=== PATIENT | male | born 1995 | race Caucasian/White ===

== ENCOUNTER 2016-03-16 21:48 | Emergency (ER) | payer OTHER ==
[2016-03-16] MEDS ORDERED: METOCLOPRAMIDE INJ 10MG/2ML VIAL (J2765) As Ordered ONE (22:26)
[2016-03-16 23:13] LABS: MEAN CORPUSCULAR HEMOGLOBIN 28.8 pg (27.0-33.0); MEAN CORPUSCULAR HGB CONC 34.7 g/dl (32.0-36.5); MEAN CORPUSCULAR VOLUME 83.1 fl (80.0-96.0); PLATELET COUNT, AUTOMATED 237 k/mm3 (150-450); RED CELL DISTRIBUTION WIDTH 13.4 % (11.5-14.5); WHITE BLOOD COUNT 9.5 K/mm3 (4.0-10.0)
[2016-03-16 23:20] LABS: ALBUMIN 4.5 GM/DL (3.2-5.2); ALBUMIN/GLOBULIN RATIO 1.15 (1.00-1.93); ALKALINE PHOSPHATASE 101 U/L (45-117); ALT/SGPT 24 U/L (12-78); AMYLASE 72 U/L (25-115); ANION GAP 9 MEQ/L (8-16); AST/SGOT 16 U/L (15-37); BILIRUBIN,DIRECT 0.1 MG/DL (0.0-0.2); BILIRUBIN,TOTAL 0.7 MG/DL (0.2-1.0); BLOOD UREA NITROGEN 18 MG/DL (7-18); CALCIUM LEVEL 9.4 MG/DL (8.5-10.1); CARBON DIOXIDE LEVEL 26 MEQ/L (21-32); CHLORIDE LEVEL 103 MEQ/L (98-107); CREATININE FOR GFR 1.38 MG/DL (0.70-1.30); GLUCOSE, FASTING 144 MG/DL (70-105); POTASSIUM SERUM 4.5 MEQ/L (3.5-5.1); SODIUM LEVEL 138 MEQ/L (136-145); TOTAL PROTEIN 8.4 GM/DL (6.4-8.2)
[2016-03-16 23:43] LABS: BANDS 2 % (< 11)
--- NOTE | 2016-03-17 00:50 | EDDOCDS ---
Physician Documentation [facility] Name: Beau Hoffman Age: 20 yrs Sex: Male : 1995 Arrival Date: 03/16/2016 Time: 21:48 Bed 17 Private [facility] Disposition: 03/16/16 23:39 Discharged to Home/Self Care. Impression: Noninfective gastroenteritis and colitis, unspecified, Orthostatic hypotension, Volume depletion. - Condition is Stable. - Prescriptions for Zofran 4 mg Oral Tablet - take 1 tablet by ORAL route 4 times per day As needed; 10 tablet. - Medication Reconciliation, Local Pharmacy Hours form. - [facility]; When: Call to arrange an appointment; Reason: Recheck today's complaints. - Problem is new. - Symptoms have improved. Historical: - Allergies: No known drug Allergies; - Home Meds: 1. none - PMHx: none; - PSHx: none; - Social history: Smoking status: Patient states was never smoker of tobacco. No barriers to communication noted, The patient speaks fluent Greenlandic, Speaks appropriately for age. - Family history: No immediate family members are acutely ill. - : The pt / caregiver states he / she is not on anticoagulants. Home medication list is obtained from the patient. - Exposure Risk Screening:: None identified. Vital Signs: 03/16 21:53 BP 133 / 61; Pulse 66; Resp 18; Temp 98.6(O); Pulse Ox 100% on R/A; Weight 65.77 kg / dd6 145 lbs (R); Height 66 in. (167.64 cm) (R); 22:20 BP 132 / 69 RA Supine (auto/reg); Pulse 91; Resp 18; nn1 22:20 BP 116 / 63 RA Sitting (auto/reg); Pulse 89; nn1 22:20 BP 111 / 58 RA Standing (auto/reg); Pulse 101; Resp 18; nn1 21:53 Body Mass Index 23.40 (65.77 kg, 167.64 cm) dd6 MDM: 22:07 Orthostatic VS ordered. cs11 22:22 IV Saline Lock ordered. cs11 22:22 NS 0.9% 2000 ml IV at bolus once ordered. cs11 22:22 Metoclopramide 10 mg IV at 40 mg/hr once over 15 mins ordered. cs11 22:23 CBC with Diff Ordered. EDMS 22:23 MED Profile Ordered. EDMS 22:23 Lipase Ordered. EDMS 22:23 Liver Profile Ordered. EDMS 22:23 Amylase Ordered. EDMS 22:53 Financial registration complete. gjb 23:15 DIFFERENTIAL NO CHARGE Ordered. EDMS 23:15 PLATELET ESTIMATE Ordered. EDMS 23:19 [facility] Payment Agreement was scanned into [employer] and attached to record. gjb 23:31 MED Profile Reviewed. cs11 23:31 Liver Profile Reviewed. cs11 23:31 CBC with Diff Reviewed. cs11 23:31 Lipase Reviewed. cs11 23:31 Amylase Reviewed. cs11 Administered Medications: 22:40 Drug: Metoclopramide 10 mg [metoclopramide 5 mg/mL injection solution] Route: IV; Rate: nn1 40 mg/hr; Infused Over: 15 mins; Site: left antecubital; 23:10 Follow up: IV Status: Completed infusion nn1 22:41 Drug: NS 0.9% 2000 ml [sodium chloride 0.9 % intravenous solution] Route: IV; Rate: nn1 bolus; Site: left antecubital; Signatures: Dispatcher [employer] EDMS Vish Ngo, DO cs11 Idris LozanoRN RN Dhara GarciaRN RN nn1 Ramona Contreras The chart was reviewed and I authenticate all verbal orders and agree with the evaluation and treatment provided.Attachments: 23:19 [facility] Payment Agreement kiesha MTDD
--- NOTE | 2016-03-17 00:50 | EDDOCDS ---
Nurse's Notes [facility] Name: Beau Hoffman Age: 20 yrs Sex: Male : 1995 Arrival Date: 03/16/2016 Time: 21:48 Bed 17 [facility] Diagnosis: Noninfective gastroenteritis and colitis, unspecified;Orthostatic hypotension;Volume depletion Presentation: 03/16 21:55 Presenting complaint: states: Patient has been vomiting, some blood noted. Loose b stools. Per slight disorientation. ? syncopal episode. Adult Sepsis Screening: Patient has new or worsening altered mentation (1 point). Patient's respiratory rate is less than 22. Systolic blood pressure is greater than 100. Patient has a qSOFA score of 0- Negative Sepsis Screen. Suicide/Homicide risk assessment- the patient denies having any suicidal and/or homicidal ideations and does not present with any other emotional, behavioral or mental health complaints. Status: Patient is not a patient service representative or dependent. Transition of care: patient was not received from another setting of care. 21:55 Acuity: LIBERTAD Level 3 [facility] [place] 21:55 Method Of Arrival: Walkin/Carried/Asstd [facility] [place] Triage Assessment: 21:56 General: Appears ill, Behavior is appropriate for age, cooperative. Pain: Denies pain. b Pt Declines HIV testing. Neurological: Level of Consciousness is awake, alert, confused, Speech is normal, Facial symmetry appears normal, Facial symmetry: tongue is midline. Cardiovascular: No deficits noted. Respiratory: Airway is patent Respiratory effort is even, unlabored, Respiratory pattern is regular, symmetrical. Derm: Skin is pale. Musculoskeletal: Range of motion intact in all extremities. Historical: - Allergies: No known drug Allergies; - Home Meds: 1. none - PMHx: none; - PSHx: none; - Social history: Smoking status: Patient states was never smoker of tobacco. No barriers to communication noted, The patient speaks fluent Khmer, Speaks appropriately for age. - Family history: No immediate family members are acutely ill. - : The pt / caregiver states he / she is not on anticoagulants. Home medication list is obtained from the patient. - Exposure Risk Screening:: None identified. Screenin/14 00:48 Screening information is obtained from the patient. Fall risk: No risks identified. nn1 Assistance ADL's: requires no assistance with activities of daily living. Abuse/DV Screen: The patient / caregiver reports he/she is: not in a situation that causes fear, pain or injury. Nutritional screening: No deficits noted. Advance Directives: Currently, there is no health care proxy. home support is adequate. Assessment: 03/16 22:21 General: Appears ill, Behavior is appropriate for age, cooperative. Pain: Location: nn1 abdomen Pain currently is 10 out of 10 on a pain scale. Quality of pain is described as sharp, throbbing, Pain began 1630 Noted to be moaning, resistant to movement. Neurological: Level of Consciousness is awake, alert, obeys commands. Respiratory: Airway is patent Respiratory effort is even, labored, shallow, Respiratory pattern is regular, Breath sounds are clear bilaterally. GI: Abdomen is non- distended Bowel sounds present X 4 quads. Abd is tender to palpation X 4 quads. Reports diarrhea, lower abdominal pain, upper abd pain, nausea, vomiting, intolerance of food, intolerance of fluids. Derm: Skin is clammy, Skin is pale. 22:41 General: Provider aware of orthostatic vital signs. . nn1 23:10 General: Appears ill, uncomfortable, Behavior is appropriate for age, cooperative. nn1 Neurological: Level of Consciousness is awake, alert. Derm: Skin is pale. 23:55 General: Second liter of fluids infusing per order. Patient reports feeling better at nn1 this time, reports nausea has improved. . Neurological: Level of Consciousness is awake, alert. Derm: Skin is pink, warm & dry. 03/17 00:27 General: Patient assisted to bedside commode, patient able to ambulate back into bed. nn1 Patient continues to have cough. . Neurological: Level of Consciousness is awake, alert. Respiratory: Airway is patent. Derm: Skin is pink, warm & dry. 00:48 General: Appears in no apparent distress, comfortable, Behavior is appropriate for age, nn1 cooperative. Pain: Denies pain. Neurological: Level of Consciousness is awake, alert. Respiratory: Airway is patent Respiratory effort is even, unlabored, Respiratory pattern is regular, symmetrical. Derm: Skin is pink, warm & dry. Vital Signs: 03/16 21:53 BP 133 / 61; Pulse 66; Resp 18; Temp 98.6(O); Pulse Ox 100% on R/A; Weight 65.77 kg dd6 (R); Height 66 in. (167.64 cm) (R); 22:20 BP 132 / 69 RA Supine (auto/reg); Pulse 91; Resp 18; nn1 22:20 BP 116 / 63 RA Sitting (auto/reg); Pulse 89; nn1 22:20 BP 111 / 58 RA Standing (auto/reg); Pulse 101; Resp 18; nn1 21:53 Body Mass Index 23.40 (65.77 kg, 167.64 cm) dd6 Vitals: 21:53 Log In Time: March 16, 2016 at 21:50. dd6 ED Course: 21:52 Patient visited by Shawn Aleman PCA. dd6 21:52 Patient moved to Waiting dd6 21:53 [facility] is Private Physician. dd6 21:54 Patient moved to Pre RCE dd6 21:56 Triage Initiated jmb 21:57 Adela Brennan,DAVID is Primary Nurse. jmb 21:57 Vish Ngo DO is Attending Physician. cs11 21:57 Patient visited by Vish Ngo DO. cs11 21:57 Patient moved to 17 jmb 22:41 Patient visited by Dhara Thomas,DAVID. nn1 22:41 Amylase Sent. nn1 22:41 Liver Profile Sent. nn1 22:41 Lipase Sent. nn1 22:41 MED Profile Sent. nn1 22:41 CBC with Diff Sent. nn1 22:41 Inserted saline lock: 18 gauge in left antecubital area and blood collected. The nn1 patient tolerated the procedure well. 22:49 Diet: given alexei roland tolerated well. jlm 22:50 Patient visited by Julienne Sanders, Wildlife Science Professor. jlm 23:15 Patient name changed from Beau\S\\S\Dalton\S\ to Beau\S\Jack\S\Dalton. EDMS 23:19 [facility] Payment Agreement was scanned into [employer] and attached to record. gjb 23:19 DIFFERENTIAL NO CHARGE Sent. nn1 23:38 [facility] is Referral Physician. cs11 03/17 00:49 The patient / caregiver is instructed regarding the plan of care and ED course. nn1 00:49 No procedures done that require assistance. nn1 Administered Medications: 03/16 22:40 Drug: Metoclopramide 10 mg [metoclopramide 5 mg/mL injection solution] Route: IV; Rate: nn1 40 mg/hr; Infused Over: 15 mins; Site: left antecubital; 23:10 Follow up: IV Status: Completed infusion nn1 22:41 Drug: NS 0.9% 2000 ml [sodium chloride 0.9 % intravenous solution] Route: IV; Rate: nn1 bolus; Site: left antecubital; Order Results: Lab Order: CBC with Diff; SPEC'M 03/16/16 22:39 Test: WHITE BLOOD COUNT; Value: 9.5; Range: 4.0-10.0; Units: K/mm3; Status: F Test: RED BLOOD COUNT; Value: 5.91; Range: 4.30-6.10; Units: M/mm3; Status: F Test: HEMOGLOBIN; Value: 17.1; Range: 14.0-18.0; Units: g/dl; Status: F Test: HEMATOCRIT; Value: 49.2; Range: 42.0-52.0; Units: %; Status: F Test: MEAN CORPUSCULAR VOLUME; Value: 83.1; Range: 80.0-96.0; Units: fl; Status: F Test: MEAN CORPUSCULAR HEMOGLOBIN; Value: 28.8; Range: 27.0-33.0; Units: pg; Status: F Test: MEAN CORPUSCULAR HGB CONC; Value: 34.7; Range: 32.0-36.5; Units: g/dl; Status: F Test: RED CELL DISTRIBUTION WIDTH; Value: 13.4; Range: 11.5-14.5; Units: %; Status: F Test: PLATELET COUNT, AUTOMATED; Value: 237; Range: 150-450; Units: k/mm3; Status: F Test: NEUTROPHILS; Value: 90; Range: 35-75; Abnormal: Above high normal; Units: %; Status: F Test: BANDS; Value: 2; Range: < 11; Units: %; Status: F Test: LYMPHOCYTES; Value: 4; Range: 16-52; Abnormal: Below low normal; Units: %; Status: F Test: MONOCYTES; Value: 4; Range: 0-8; Units: %; Status: F Test: RBC MORPHOLOGY; Value: NORMAL; Status: F Lab Order: MED Profile; [facility] 03/16/16 22:39 Test: GLUCOSE, FASTING; Value: 144; Range: 70-105; Abnormal: Above high normal; Units: MG/DL; Status: F Test: BLOOD UREA NITROGEN; Value: 18; Range: 7-18; Units: MG/DL; Status: F Test: CREATININE FOR GFR; Value: 1.38; Range: 0.70-1.30; Abnormal: Above high normal; Units: MG/DL; Status: F Test: SODIUM LEVEL; Value: 138; Range: 136-145; Units: MEQ/L; Status: F Test: POTASSIUM SERUM; Value: 4.5; Range: 3.5-5.1; Units: MEQ/L; Status: F Test: CHLORIDE LEVEL; Value: 103; Range: 98-107; Units: MEQ/L; Status: F Test: CARBON DIOXIDE LEVEL; Value: 26; Range: 21-32; Units: MEQ/L; Status: F Test: ANION GAP; Value: 9; Range: 8-16; Units: MEQ/L; Status: F Test: CALCIUM LEVEL; Value: 9.4; Range: 8.5-10.1; Units: MG/DL; Status: F Lab Order: Lipase; [facility] 03/16/16 22:39 Test: LIPASE; Value: 93; Range: 73-393; Units: U/L; Status: F Lab Order: Liver Profile; [facility] 03/16/16 22:39 Test: AST/SGOT; Value: 16; Range: 15-37; Units: U/L; Status: F Test: ALT/SGPT; Value: 24; Range: 12-78; Units: U/L; Status: F Test: ALKALINE PHOSPHATASE; Value: 101; Range: 45-117; Units: U/L; Status: F Test: BILIRUBIN,TOTAL; Value: 0.7; Range: 0.2-1.0; Units: MG/DL; Status: F Test: BILIRUBIN,DIRECT; Value: 0.1; Range: 0.0-0.2; Units: MG/DL; Status: F Test: TOTAL PROTEIN; Value: 8.4; Range: 6.4-8.2; Abnormal: Above high normal; Units: GM/DL; Status: F Test: ALBUMIN; Value: 4.5; Range: 3.2-5.2; Units: GM/DL; Status: F Test: ALBUMIN/GLOBULIN RATIO; Value: 1.15; Range: 1.00-1.93; Status: F Lab Order: Amylase; SPEC'M 03/16/16 22:39 Test: AMYLASE; Value: 72; Range: 25-115; Units: U/L; Status: F Lab Order: PLATELET ESTIMATE; SPEC'M 03/16/16 22:39 Test: PLATELET ESTIMATE; Value: NORMAL; Range: NORMAL; Status: F Outcome: 23:39 Discharge ordered by Provider. cs11 03/17 00:48 Discharge Assessment: Patient awake, alert and oriented x 3. No cognitive and/or nn1 functional deficits noted. Patient verbalized understanding of disposition instructions. patient administered narcotics - no. The following High Risk Discharge criteria are identified: None. Discharged to home ambulatory, with significant other. Condition: stable. No special radiology studies were completed. Property :Personal belongings accompany Pt. 00:49 Patient left the ED. nn1 Signatures: Dispatcher Med[employer] EDMS Shawn Aleman, WINDOWS SOFTWARE DEVELOPER WINDOWS SOFTWARE DEVELOPER dd6 Vish Ngo, DO DO cs11 Idris Lozano,RN RN Julienne Brown, Wildlife Science Professor Unit Dhara Armenta RN RN nn1 Ramona Contrears MTDD
--- NOTE | 2016-03-19 01:50 | EDDOCDS ---
Physician Documentation [facility] Name: Beau Hoffman Age: 20 yrs Sex: Male : 1995 Arrival Date: 03/16/2016 Time: 21:48 Bed 17 Private MD: [facility] Disposition: 03/16/16 23:39 Discharged to Home/Self Care. Impression: Noninfective gastroenteritis and colitis, unspecified, Orthostatic hypotension, Volume depletion. - Condition is Stable. - Prescriptions for Zofran 4 mg Oral Tablet - take 1 tablet by ORAL route 4 times per day As needed; 10 tablet. - Medication Reconciliation, Local Pharmacy Hours form. - Follow up: [facility]; When: Call to arrange an appointment; Reason: Recheck today's complaints. - Problem is new. - Symptoms have improved. Historical: - Allergies: No known drug Allergies; - Home Meds: 1. none - PMHx: none; - PSHx: none; - Social history: Smoking status: Patient states was never smoker of tobacco. No barriers to communication noted, The patient speaks fluent Congolese, Speaks appropriately for age. - Family history: No immediate family members are acutely ill. - : The pt / caregiver states he / she is not on anticoagulants. Home medication list is obtained from the patient. - Exposure Risk Screening:: None identified. Vital Signs: 03/16 21:53 BP 133 / 61; Pulse 66; Resp 18; Temp 98.6(O); Pulse Ox 100% on R/A; Weight 65.77 kg / dd6 145 lbs (R); Height 66 in. (167.64 cm) (R); 22:20 BP 132 / 69 RA Supine (auto/reg); Pulse 91; Resp 18; nn1 22:20 BP 116 / 63 RA Sitting (auto/reg); Pulse 89; nn1 22:20 BP 111 / 58 RA Standing (auto/reg); Pulse 101; Resp 18; nn1 03/17 00:50 BP 115 / 53; Pulse 103; Resp 18; Temp 100.8(O); Pulse Ox 98% on R/A; nn1 03/16 21:53 Body Mass Index 23.40 (65.77 kg, 167.64 cm) dd6 MDM: 03/16 22:07 Orthostatic VS ordered. cs11 22:22 IV Saline Lock ordered. cs11 22:22 NS 0.9% 2000 ml IV at bolus once ordered. cs11 22:22 Metoclopramide 10 mg IV at 40 mg/hr once over 15 mins ordered. cs11 22:23 CBC with Diff Ordered. EDMS 22:23 MED Profile Ordered. EDMS 22:23 Lipase Ordered. EDMS 22:23 Liver Profile Ordered. EDMS 22:23 Amylase Ordered. EDMS 22:53 Financial registration complete. gjb 23:15 DIFFERENTIAL NO CHARGE Ordered. EDMS 23:15 PLATELET ESTIMATE Ordered. EDMS 23:19 [facility] Payment Agreement was scanned into [employer] and attached to record. gjb 23:31 MED Profile Reviewed. cs11 23:31 Liver Profile Reviewed. cs11 23:31 CBC with Diff Reviewed. cs11 23:31 Lipase Reviewed. cs11 23:31 Amylase Reviewed. [facility] 03/17 08:01 T-Sheet-- Draft Copy was scanned into [employer] and attached to record. seh Administered Medications: 03/16 22:40 Drug: Metoclopramide 10 mg [metoclopramide 5 mg/mL injection solution] Route: IV; Rate: nn1 40 mg/hr; Infused Over: 15 mins; Site: left antecubital; 23:10 Follow up: IV Status: Completed infusion nn1 22:41 Drug: NS 0.9% 2000 ml [sodium chloride 0.9 % intravenous solution] Route: IV; Rate: nn1 bolus; Site: left antecubital; 03/17 00:50 Follow up: IV Status: Completed infusion; IV Intake: 2000ml nn1 Signatures: Dispatcher [employer] EDPR Vish Ngo DO DO cs11 Idris LozanoRN RN Dhara Garcia RN RN henok1 Ramona Contreras Sarah [facility] The chart was reviewed and I authenticate all verbal orders and agree with the evaluation and treatment provided.Attachments: 03/16 23:19 [facility] Payment Agreement [facility] 03/17 08:01 T-Sheet-- Draft Copy [facility] Chart Complete MTDD
--- NOTE | 2016-03-19 01:50 | EDDOCDS ---
Physician Documentation [facility] Name: Beau Hoffman Age: 20 yrs Sex: Male : 1995 Arrival Date: 03/16/2016 Time: 21:48 Bed 17 Private MD: [facility] Disposition: 03/16/16 23:39 Discharged to Home/Self Care. Impression: Noninfective gastroenteritis and colitis, unspecified, Orthostatic hypotension, Volume depletion. - Condition is Stable. - Prescriptions for Zofran 4 mg Oral Tablet - take 1 tablet by ORAL route 4 times per day As needed; 10 tablet. - Medication Reconciliation, Local Pharmacy Hours form. - Follow up: [facility]; When: Call to arrange an appointment; Reason: Recheck today's complaints. - Problem is new. - Symptoms have improved. Historical: - Allergies: No known drug Allergies; - Home Meds: 1. none - PMHx: none; - PSHx: none; - Social history: Smoking status: Patient states was never smoker of tobacco. No barriers to communication noted, The patient speaks fluent Norwegian, Speaks appropriately for age. - Family history: No immediate family members are acutely ill. - : The pt / caregiver states he / she is not on anticoagulants. Home medication list is obtained from the patient. - Exposure Risk Screening:: None identified. Vital Signs: 03/16 21:53 BP 133 / 61; Pulse 66; Resp 18; Temp 98.6(O); Pulse Ox 100% on R/A; Weight 65.77 kg / dd6 145 lbs (R); Height 66 in. (167.64 cm) (R); 22:20 BP 132 / 69 RA Supine (auto/reg); Pulse 91; Resp 18; nn1 22:20 BP 116 / 63 RA Sitting (auto/reg); Pulse 89; nn1 22:20 BP 111 / 58 RA Standing (auto/reg); Pulse 101; Resp 18; nn1 03/17 00:50 BP 115 / 53; Pulse 103; Resp 18; Temp 100.8(O); Pulse Ox 98% on R/A; nn1 03/16 21:53 Body Mass Index 23.40 (65.77 kg, 167.64 cm) dd6 MDM: 03/16 22:07 Orthostatic VS ordered. cs11 22:22 IV Saline Lock ordered. cs11 22:22 NS 0.9% 2000 ml IV at bolus once ordered. cs11 22:22 Metoclopramide 10 mg IV at 40 mg/hr once over 15 mins ordered. cs11 22:23 CBC with Diff Ordered. EDMS 22:23 MED Profile Ordered. EDMS 22:23 Lipase Ordered. EDMS 22:23 Liver Profile Ordered. EDMS 22:23 Amylase Ordered. EDMS 22:53 Financial registration complete. gjb 23:15 DIFFERENTIAL NO CHARGE Ordered. EDMS 23:15 PLATELET ESTIMATE Ordered. EDMS 23:19 [facility] Payment Agreement was scanned into [employer] and attached to record. gjb 23:31 MED Profile Reviewed. cs11 23:31 Liver Profile Reviewed. cs11 23:31 CBC with Diff Reviewed. cs11 23:31 Lipase Reviewed. cs11 23:31 Amylase Reviewed. [facility] 03/17 08:01 T-Sheet-- Draft Copy was scanned into [employer] and attached to record. seh Administered Medications: 03/16 22:40 Drug: Metoclopramide 10 mg [metoclopramide 5 mg/mL injection solution] Route: IV; Rate: nn1 40 mg/hr; Infused Over: 15 mins; Site: left antecubital; 23:10 Follow up: IV Status: Completed infusion nn1 22:41 Drug: NS 0.9% 2000 ml [sodium chloride 0.9 % intravenous solution] Route: IV; Rate: nn1 bolus; Site: left antecubital; 03/17 00:50 Follow up: IV Status: Completed infusion; IV Intake: 2000ml nn1 Signatures: Dispatcher [employer] EDME Vish Nog DO DO cs11 Idris LozanoRN RN Dhara Garcia RN RN henok1 Ramona Contreras Sarah [facility] The chart was reviewed and I authenticate all verbal orders and agree with the evaluation and treatment provided.Attachments: 03/16 23:19 [facility] Payment Agreement [facility] 03/17 08:01 T-Sheet-- Draft Copy [facility] Chart Complete MTDD
--- NOTE | 2016-03-19 01:50 | EDDOCDS ---
Nurse's Notes [facility] Name: Beau Hoffman Age: 20 yrs Sex: Male : 1995 Arrival Date: 03/16/2016 Time: 21:48 Bed 17 [facility] Diagnosis: Noninfective gastroenteritis and colitis, unspecified;Orthostatic hypotension;Volume depletion Presentation: 03/16 21:55 Presenting complaint: states: Patient has been vomiting, some blood noted. Loose b stools. Per slight disorientation. ? syncopal episode. Adult Sepsis Screening: Patient has new or worsening altered mentation (1 point). Patient's respiratory rate is less than 22. Systolic blood pressure is greater than 100. Patient has a qSOFA score of 0- Negative Sepsis Screen. Suicide/Homicide risk assessment- the patient denies having any suicidal and/or homicidal ideations and does not present with any other emotional, behavioral or mental health complaints. Status: Patient is not a equipment service associate or dependent. Transition of care: patient was not received from another setting of care. 21:55 Acuity: LIBERTAD Level 3 [facility] 21:55 Method Of Arrival: Walkin/Carried/Asstd [facility] Triage Assessment: 21:56 General: Appears ill, Behavior is appropriate for age, cooperative. Pain: Denies pain. b Pt Declines HIV testing. Neurological: Level of Consciousness is awake, alert, confused, Speech is normal, Facial symmetry appears normal, Facial symmetry: tongue is midline. Cardiovascular: No deficits noted. Respiratory: Airway is patent Respiratory effort is even, unlabored, Respiratory pattern is regular, symmetrical. Derm: Skin is pale. Musculoskeletal: Range of motion intact in all extremities. Historical: - Allergies: No known drug Allergies; - Home Meds: 1. none - PMHx: none; - PSHx: none; - Social history: Smoking status: Patient states was never smoker of tobacco. No barriers to communication noted, The patient speaks fluent Y[place], Speaks appropriately for age. - Family history: No immediate family members are acutely ill. - : The pt / caregiver states he / she is not on anticoagulants. Home medication list is obtained from the patient. - Exposure Risk Screening:: None identified. Screenin/14 00:48 Screening information is obtained from the patient. Fall risk: No risks identified. nn1 Assistance ADL's: requires no assistance with activities of daily living. Abuse/DV Screen: The patient / caregiver reports he/she is: not in a situation that causes fear, pain or injury. Nutritional screening: No deficits noted. Advance Directives: Currently, there is no health care proxy. home support is adequate. Assessment: 03/16 22:21 General: Appears ill, Behavior is appropriate for age, cooperative. Pain: Location: nn1 abdomen Pain currently is 10 out of 10 on a pain scale. Quality of pain is described as sharp, throbbing, Pain began 1630 Noted to be moaning, resistant to movement. Neurological: Level of Consciousness is awake, alert, obeys commands. Respiratory: Airway is patent Respiratory effort is even, labored, shallow, Respiratory pattern is regular, Breath sounds are clear bilaterally. GI: Abdomen is non- distended Bowel sounds present X 4 quads. Abd is tender to palpation X 4 quads. Reports diarrhea, lower abdominal pain, upper abd pain, nausea, vomiting, intolerance of food, intolerance of fluids. Derm: Skin is clammy, Skin is pale. 22:41 General: Provider aware of orthostatic vital signs. . nn1 23:10 General: Appears ill, uncomfortable, Behavior is appropriate for age, cooperative. nn1 Neurological: Level of Consciousness is awake, alert. Derm: Skin is pale. 23:55 General: Second liter of fluids infusing per order. Patient reports feeling better at nn1 this time, reports nausea has improved. . Neurological: Level of Consciousness is awake, alert. Derm: Skin is pink, warm & dry. 03/17 00:27 General: Patient assisted to bedside commode, patient able to ambulate back into bed. nn1 Patient continues to have cough. . Neurological: Level of Consciousness is awake, alert. Respiratory: Airway is patent. Derm: Skin is pink, warm & dry. 00:48 General: Appears in no apparent distress, comfortable, Behavior is appropriate for age, nn1 cooperative. Pain: Denies pain. Neurological: Level of Consciousness is awake, alert. Respiratory: Airway is patent Respiratory effort is even, unlabored, Respiratory pattern is regular, symmetrical. Derm: Skin is pink, warm & dry. Vital Signs: 03/16 21:53 BP 133 / 61; Pulse 66; Resp 18; Temp 98.6(O); Pulse Ox 100% on R/A; Weight 65.77 kg dd6 (R); Height 66 in. (167.64 cm) (R); 22:20 BP 132 / 69 RA Supine (auto/reg); Pulse 91; Resp 18; nn1 22:20 BP 116 / 63 RA Sitting (auto/reg); Pulse 89; nn1 22:20 BP 111 / 58 RA Standing (auto/reg); Pulse 101; Resp 18; nn1 03/17 00:50 BP 115 / 53; Pulse 103; Resp 18; Temp 100.8(O); Pulse Ox 98% on R/A; nn1 03/16 21:53 Body Mass Index 23.40 (65.77 kg, 167.64 cm) dd6 Vitals: 03/16 21:53 Log In Time: March 16, 2016 at 21:50. dd6 ED Course: 21:52 Patient visited by Shawn Aleman PCA. dd6 21:52 Patient moved to Waiting dd6 21:53 [facility] is Private Physician. dd6 21:54 Patient moved to Pre RCE dd6 21:56 Triage Initiated jmb 21:57 Adela Brennan,DAVID is Primary Nurse. jmb 21:57 Vish Ngo DO is Attending Physician. cs11 21:57 Patient visited by Vish Ngo DO. cs11 21:57 Patient moved to 17 jmb 22:41 Patient visited by Dhara Thomas,DAVID. nn1 22:41 Amylase Sent. nn1 22:41 Liver Profile Sent. nn1 22:41 Lipase Sent. nn1 22:41 MED Profile Sent. nn1 22:41 CBC with Diff Sent. nn1 22:41 Inserted saline lock: 18 gauge in left antecubital area and blood collected. The nn1 patient tolerated the procedure well. 22:49 Diet: given alexei roland tolerated well. jlm 22:50 Patient visited by Julienne Sanders Unit Clerk. jlm 23:15 Patient name changed from Beau\S\\S\Dalton\S\ to Beau\S\Jack\S\Dalton. EDMS 23:19 [facility] [place] was scanned into [employer] and attached to record. gjb 23:19 DIFFERENTIAL NO CHARGE Sent. nn1 23:38 [facility] is Referral Physician. cs11 03/17 00:49 The patient / caregiver is instructed regarding the plan of care and ED course. nn1 00:49 No procedures done that require assistance. nn1 08:01 T-Sheet-- Draft Copy was scanned into [employer] and attached to record. [facility] Administered Medications: 03/16 22:40 Drug: Metoclopramide 10 mg [metoclopramide 5 mg/mL injection solution] Route: IV; Rate: nn1 40 mg/hr; Infused Over: 15 mins; Site: left antecubital; 23:10 Follow up: IV Status: Completed infusion nn1 22:41 Drug: NS 0.9% 2000 ml [sodium chloride 0.9 % intravenous solution] Route: IV; Rate: nn1 bolus; Site: left antecubital; 03/17 00:50 Follow up: IV Status: Completed infusion; IV Intake: 2000ml nn1 Intake: 00:50 IV: 2000.00ml; Total: 2000.00ml. nn1 Order Results: Lab Order: CBC with Diff; SPEC'M 03/16/16 22:39 Test: WHITE BLOOD COUNT; Value: 9.5; Range: 4.0-10.0; Units: K/mm3; Status: F Test: RED BLOOD COUNT; Value: 5.91; Range: 4.30-6.10; Units: M/mm3; Status: F Test: HEMOGLOBIN; Value: 17.1; Range: 14.0-18.0; Units: g/dl; Status: F Test: HEMATOCRIT; Value: 49.2; Range: 42.0-52.0; Units: %; Status: F Test: MEAN CORPUSCULAR VOLUME; Value: 83.1; Range: 80.0-96.0; Units: fl; Status: F Test: MEAN CORPUSCULAR HEMOGLOBIN; Value: 28.8; Range: 27.0-33.0; Units: pg; Status: F Test: MEAN CORPUSCULAR HGB CONC; Value: 34.7; Range: 32.0-36.5; Units: g/dl; Status: F Test: RED CELL DISTRIBUTION WIDTH; Value: 13.4; Range: 11.5-14.5; Units: %; Status: F Test: PLATELET COUNT, AUTOMATED; Value: 237; Range: 150-450; Units: k/mm3; Status: F Test: NEUTROPHILS; Value: 90; Range: 35-75; Abnormal: Above high normal; Units: %; Status: F Test: BANDS; Value: 2; Range: < 11; Units: %; Status: F Test: LYMPHOCYTES; Value: 4; Range: 16-52; Abnormal: Below low normal; Units: %; Status: F Test: MONOCYTES; Value: 4; Range: 0-8; Units: %; Status: F Test: RBC MORPHOLOGY; Value: NORMAL; Status: F Lab Order: MED Profile; [facility] 03/16/16 22:39 Test: GLUCOSE, FASTING; Value: 144; Range: 70-105; Abnormal: Above high normal; Units: MG/DL; Status: F Test: BLOOD UREA NITROGEN; Value: 18; Range: 7-18; Units: MG/DL; Status: F Test: CREATININE FOR GFR; Value: 1.38; Range: 0.70-1.30; Abnormal: Above high normal; Units: MG/DL; Status: F Test: SODIUM LEVEL; Value: 138; Range: 136-145; Units: MEQ/L; Status: F Test: POTASSIUM SERUM; Value: 4.5; Range: 3.5-5.1; Units: MEQ/L; Status: F Test: CHLORIDE LEVEL; Value: 103; Range: 98-107; Units: MEQ/L; Status: F Test: CARBON DIOXIDE LEVEL; Value: 26; Range: 21-32; Units: MEQ/L; Status: F Test: ANION GAP; Value: 9; Range: 8-16; Units: MEQ/L; Status: F Test: CALCIUM LEVEL; Value: 9.4; Range: 8.5-10.1; Units: MG/DL; Status: F Lab Order: Lipase; [facility] 03/16/16 22:39 Test: LIPASE; Value: 93; Range: 73-393; Units: U/L; Status: F Lab Order: Liver Profile; [facility] 03/16/16 22:39 Test: AST/SGOT; Value: 16; Range: 15-37; Units: U/L; Status: F Test: ALT/SGPT; Value: 24; Range: 12-78; Units: U/L; Status: F Test: ALKALINE PHOSPHATASE; Value: 101; Range: 45-117; Units: U/L; Status: F Test: BILIRUBIN,TOTAL; Value: 0.7; Range: 0.2-1.0; Units: MG/DL; Status: F Test: BILIRUBIN,DIRECT; Value: 0.1; Range: 0.0-0.2; Units: MG/DL; Status: F Test: TOTAL PROTEIN; Value: 8.4; Range: 6.4-8.2; Abnormal: Above high normal; Units: GM/DL; Status: F Test: ALBUMIN; Value: 4.5; Range: 3.2-5.2; Units: GM/DL; Status: F Test: ALBUMIN/GLOBULIN RATIO; Value: 1.15; Range: 1.00-1.93; Status: F Lab Order: Amylase; SPEC'M 03/16/16 22:39 Test: AMYLASE; Value: 72; Range: 25-115; Units: U/L; Status: F Lab Order: PLATELET ESTIMATE; SPEC'M 03/16/16 22:39 Test: PLATELET ESTIMATE; Value: NORMAL; Range: NORMAL; Status: F Outcome: 03/16 23:39 Discharge ordered by Provider. cs11 03/17 00:48 Discharge Assessment: Patient awake, alert and oriented x 3. No cognitive and/or nn1 functional deficits noted. Patient verbalized understanding of disposition instructions. patient administered narcotics - no. The following High Risk Discharge criteria are identified: None. Discharged to home ambulatory, with significant other. Condition: stable. No special radiology studies were completed. Property :Personal belongings accompany Pt. 00:49 Patient left the ED. nn1 Signatures: Dispatcher [employer] EDMS Shawn Aleman, SHERWIN TABLEAU LEAD dd6 Vish Ngo DO DO cs11 Idris Lozano,RN Julienne Rodriguez, Esthetician Unit Dhara Armenta RN RN [email or web address] Ramona Contreras Sarah seh Chart Complete MTDD
== END 2016-03-17 00:49 | disposition home or self-care (01) ==
LOC: M ED 21:48
DX: K52.9 Noninfective gastroenteritis and colitis, unspecified (principal)
CPT/HCPCS: 36415; 80048; 80076; 82150; 83690; 85025; 96361; 96365; 99284; J2765

== ENCOUNTER 2017-02-16 21:51 | Emergency (ER) | payer OTHER ==
[~2017-02-16] VITALS: Ht 167.6 cm; Wt 67.3 kg
[2017-02-16] MEDS ORDERED: GI COCKTAIL 50ML BTL(HYOSCYAMINE/MAALOX/LIDOCAINE VISCOUS)(1:3:1) PO ONE (22:30)
[2017-02-16] MEDS ORDERED: ONDANSETRON 4MG/2ML VIAL (J2405) IV ONE (22:30)
[2017-02-16] MEDS ORDERED: PANTOPRAZOLE 40MG INJ (PROTONIX) (C9113) IV ONE (22:30)
[2017-02-16] MEDS ORDERED: NS 500 ML IV ONE (22:30)
[2017-02-16 22:48] LABS: BASO % 0.4 % (0.0-1.0); EOS # 0.2 10^3/uL (0.0-0.50); EOS % 3.1 % (0.0-3.0); IMMATURE GRANULOCYTE % 0.4 % (0-0); LYMPH # 2.4 10^3/uL (1.5-6.5); LYMPH % 34.1 % (24.0-44.0); MEAN CORPUSCULAR HEMOGLOBIN 29.2 pg (27.0-33.0); MEAN CORPUSCULAR HGB CONC 33.9 g/dl (32.0-36.5); MEAN CORPUSCULAR VOLUME 86.2 fl (80.0-96.0); MONO # 0.6 10^3/uL (0.0-0.8); MONO % 8.1 % (0.0-5.0); NEUTROPHILS # 3.8 10^3/uL (1.8-7.7); NEUTROPHILS % 53.9 % (36.0-66.0); PLATELET COUNT, AUTOMATED 273 10^3/uL (150-450); RED CELL DISTRIBUTION WIDTH 12.3 % (11.5-14.5); WHITE BLOOD COUNT 7.1 10^3/uL (4.0-10.0)
[2017-02-16] MEDS ORDERED: GASTROGRAFIN SOLUTION 30ML PO ONE (22:50)
[2017-02-16 22:56] LABS: INR 0.98
[2017-02-16 23:08] LABS: ALBUMIN 3.6 GM/DL (3.2-5.2); ALBUMIN/GLOBULIN RATIO 1.13 (1.00-1.93); ALKALINE PHOSPHATASE 89 U/L (45-117); ALT/SGPT 24 U/L (12-78); AMYLASE 69 U/L (25-115); ANION GAP 6 MEQ/L (8-16); AST/SGOT 16 U/L (7-37); BILIRUBIN,DIRECT < 0.1 MG/DL (0.0-0.2); BILIRUBIN,TOTAL 0.3 MG/DL (0.2-1.0); BLOOD UREA NITROGEN 16 MG/DL (7-18); CALCIUM LEVEL 8.6 MG/DL (8.5-10.1); CARBON DIOXIDE LEVEL 29 MEQ/L (21-32); CHLORIDE LEVEL 106 MEQ/L (98-107); CREATININE FOR GFR 1.06 MG/DL (0.70-1.30); GLOMERULAR FILTRATION RATE > 60.0 (>60); GLUCOSE, FASTING 114 MG/DL (70-105); POTASSIUM SERUM 3.9 MEQ/L (3.5-5.1); SODIUM LEVEL 141 MEQ/L (136-145); TOTAL PROTEIN 6.8 GM/DL (6.4-8.2)
[2017-02-16] MEDS ORDERED: GASTROGRAFIN SOLUTION 30ML (Q9963) PO ONE (23:20)
[2017-02-17] MEDS ORDERED: ISOVUE-370 76% 100ML VIAL (Q9967) As Ordered ONE (00:13)
[2017-02-17 00:48] LABS: CONTROL LINE MONO INT CTR LINE PRESENT
--- NOTE | 2017-02-17 02:00 | REPUSA ---
CLINICAL HISTORY: Abdominal pain. TECHNIQUE: Multiple axial, sagittal and coronal CT images were obtained through the abdomen and pelvi s after administration of oral and intravenous contrast material. COMMENTS: Contrast filled distended stomach. Moderate amount of fecal residue in the large bowels. Fluid-filled small bowels. The liver is of uniform attenuation without mass or defect. There is no intra or extrahepatic biliary ductal dilatation. The spleen is normal. The gallbladder is within normal limits. The pancreas is of normal contour and attenuation characteristics. There is no evidence of adrenal mass. Both kidneys demonstrate prompt and equal nephrograms. The kidneys are normal in size, shape and conf iguration. There is no evidence of renal or ureteral mass. No renal or ureteral calculi are identifie d. There is no hydroureter or hydronephrosis. No evidence for appendicitis. There is no bowel wall thickening. No evidence for small or large eli l obstruction. There is no evidence of abdominal ascites or lymphadenopathy. There is no evidence of intrinsic or extrinsic bladder mass. There is no pelvic ascites or lymphadeno nida. Images of the lung bases show no evidence of pleural or parenchymal mass. There are no pleural effusi ons. The bony structures are free of lytic or blastic lesions. IMPRESSION: Gastroparesis. Constipation. Mild ileus. Thank you for your kind referral of this patient.
[2017-02-17] MEDS ORDERED: REGL5TAB2 PO (02:12)
[2017-02-17 02:27] VITALS: BP 124/61
[2017-02-18 13:45] LABS: CONTROL LINE HPYORI INT CTR LINE PRESENT
== END 2017-02-17 02:47 | disposition home or self-care (01) ==
LOC: M ED 21:51
DX: K31.84 Gastroparesis (principal); K59.00 Constipation, unspecified; K56.7 Ileus, unspecified; Z79.899 Other long term (current) drug therapy
CPT/HCPCS: 74177; 80048; 80076; 81001; 82150; 83605; 83690; 85025; 85610; 86308; 86677; 87040; 87491; 87591; 96361; 96374; 96375; 99284; C9113; J2405; Q9963; Q9967

== ENCOUNTER 2017-12-30 11:13 | Day surgery (SDC) | payer OTHER ==
[~2017-12-30 11:13] MED LIST: LIDOCAINE 2% INJ 100 MG/5 ML SDV (FOR ANES.) As Ordered; PROPOFOL 200 MG/20 ML VIAL As Ordered
[2017-12-30] MEDS: NS 1,000 ML IV (11:30)
== END 2017-12-30 13:11 | disposition home or self-care (01) ==
LOC: M OPP 11:13
DX: R10.13 Epigastric pain (principal); R12 Heartburn; K21.9 Gastro-esophageal reflux disease without esophagitis; G70.00 Myasthenia gravis without (acute) exacerbation
CPT/HCPCS: 43239

== ENCOUNTER 2019-11-19 14:50 | Emergency (ER) | payer OTHER ==
[~2019-11-19] VITALS: Ht 167.6 cm; Wt 70.5 kg
[~2019-11-19 14:50] MED LIST changes: -LIDOCAINE 2% INJ 100 MG/5 ML SDV (FOR ANES.) As Ordered; -PROPOFOL 200 MG/20 ML VIAL As Ordered; +REGL5TAB2 PO
[2019-11-19 15:20] LABS: HEMATOCRIT 42.1 % (42.0-52.0); HEMOGLOBIN 14.3 g/dl (13.5-17.5); MEAN CORPUSCULAR VOLUME 88.4 fl (80.0-96.0); PLATELET COUNT, AUTOMATED 226 10^3/uL (150-450); RED BLOOD COUNT 4.76 10^6/uL (4.30-6.10); WHITE BLOOD COUNT 6.9 10^3/uL (4.0-10.0)
[2019-11-19 15:45] LABS: AMPHETAMINES LEVEL URINE NEGATIVE (NEGATIVE); BARBITURATES URINE NEGATIVE (NEGATIVE); BENZODIAZEPINES URINE NEGATIVE (NEGATIVE); CANNABINOIDS URINE NEGATIVE (NEGATIVE); COCAINE METABOLITE URINE NEGATIVE (NEGATIVE); METHADONE URINE NEGATIVE (NEGATIVE); OPIATES URINE NEGATIVE (NEGATIVE); PHENCYCLIDINE URINE NEGATIVE (NEGATIVE)
[2019-11-19 15:51] LABS: ACETAMINOPHEN LEVEL < 2.0 UG/ML (10.0-30.0); ALBUMIN 3.9 GM/DL (3.2-5.2); ALT/SGPT 31 U/L (12-78); BILIRUBIN,DIRECT 0.1 MG/DL (0.0-0.2); BILIRUBIN,TOTAL 0.4 MG/DL (0.2-1.0); BLOOD UREA NITROGEN 19 MG/DL (7-18); CALCIUM LEVEL 8.9 MG/DL (8.5-10.1); CARBON DIOXIDE LEVEL 26 MEQ/L (21-32); CHLORIDE LEVEL 107 MEQ/L (98-107); CREATININE FOR GFR 1.14 MG/DL (0.70-1.30); ETHYL ALCOHOL (ETHANOL) 0.085 % (0.000-0.010); GLOMERULAR FILTRATION RATE > 60.0 (>60); GLUCOSE, FASTING 109 MG/DL (70-100); POTASSIUM SERUM 4.1 MEQ/L (3.5-5.1); SALICYLATE LEVEL < 1.7 MG/DL (5.0-30.0); SODIUM LEVEL 142 MEQ/L (136-145); THYROID STIMULATING HORMONE 0.634 uIU/ML (0.358-3.740); TOTAL PROTEIN 6.8 GM/DL (6.4-8.2)
[2019-11-19] MEDS ORDERED: IBUPROFEN 400 MG TAB PO ONE (19:30)
[2019-11-19 19:38] VITALS: BP 122/72
== END 2019-11-19 19:39 | disposition home or self-care (01) ==
LOC: M ED 14:50
DX: F43.0 Acute stress reaction (principal)
CPT/HCPCS: 36415; 80048; 80076; 80307; 84443; 85027; 99284; G0480

== ENCOUNTER 2020-01-02 02:46 | Emergency (ER) | payer OTHER ==
[~2020-01-02] VITALS: Ht 167.6 cm; Wt 75.2 kg
[2020-01-02 04:57] VITALS: BP 122/72
== END 2020-01-02 04:58 | disposition home or self-care (01) ==
LOC: M ED 02:46
DX: B34.9 Viral infection, unspecified (principal); R50.9 Fever, unspecified

== ENCOUNTER → 2020-08-18 | Outpatient (REF) | payer OTHER ==
[2020-08-18 11:48] LABS: SEMEN APPEARANCE OPAQUE (OPAQUE)
[2020-08-18 11:49] LABS: SEMEN VISCOSITY LIQUID (LIQUID); SEMEN VOLUME 2.3 ml (2.0-5.0); SPERM CONCENTRATION 42.6 M/ml (>=15.0); WBC CONCENTRATION >1 M/ml (<=1 M/ml)
== END ==
LOC: M LAB REF 11:35
PROVIDERS: ATTEND Physician Assistant
DX: Z31.41 Encounter for fertility testing (principal)